=== PATIENT | male | born 1995 | race Caucasian/White ===

== ENCOUNTER 2022-01-12 07:51 | Emergency (ER) | payer OTHER ==
[~2022-01-12] VITALS: Ht 167.6 cm; Wt 55.8 kg
[2022-01-12 08:01] VITALS: BP 115/70
--- NOTE | 2022-01-12 08:08 | NUR ---
PT AMBULATED TO BED, STEADY GAIT
--- NOTE | 2022-01-12 08:18 | NUR ---
26 y/o male bib self c/o body weakness x this am. Pt states fainting this am after waking up, and feeling his ears pulsating. Pt reports LOC very briefly. Pt states loss of appetite, nausea, neck and back pain. Pt denies any injury/trauma to his head and any other part of body. Pt reports x 1 episode of fainting many years ago. Pt is A&O x 4, with even and steady gait. PEMHX: denies NKDA
--- NOTE | 2022-01-12 08:48 | NUR ---
holly swab collected and sent to lab
[2022-01-12] MEDS ORDERED: ACET-10509 PO (09:33)
[2022-01-12] MEDS ORDERED: IBUP-1842 PO (09:33)
[2022-01-12 09:50] VITALS: BP 130/86
--- NOTE | 2022-01-12 09:57 | NUR ---
Patient discharged with v/s stable. Written and verbal after care instructions given and explained about covid-19, syncope. Patient alert, oriented and verbalized understanding of instructions. Ambulatory with steady gait. All questions addressed prior to discharge. ID band removed. Patient advised to follow up with PMD. Rx of motrin, and tylenol given. Patient educated on indication of medication including possible reaction and side effects. Opportunity to ask questions provided and answered.
== END 2022-01-12 09:50 | disposition home or self-care (01) ==
LOC: MED 07:51
DX: U07.1 COVID-19 (principal); R55 Syncope and collapse; M79.10 Myalgia, unspecified site; R63.0 Anorexia; Z79.899 Other long term (current) drug therapy
CPT/HCPCS: 93005; 99284

== ENCOUNTER 2022-02-03 08:43 | Emergency (ER) | payer OTHER ==
[~2022-02-03] VITALS: Ht 171.7 cm; Wt 54.7 kg
[~2022-02-03 08:43] MED LIST: ACET-10509 PO; IBUP-1842 PO
[2022-02-03 08:47] VITALS: BP 115/64
--- NOTE | 2022-02-03 08:51 | NUR ---
PATIENT AMBULATED TO BED2.
[2022-02-03] MEDS ORDERED: PRED20TA5 PO (09:02)
[2022-02-03] MEDS ORDERED: IBUP-2809 PO (09:02)
--- NOTE | 2022-02-03 09:05 | NUR ---
PATIENT PRESENTS TO ED WITH SORE THROAT/COUGH AND EAR PAIN. PT STATES INCREASED PAIN WITH SWALLOWING PT TOOK TYLENOL WITH NO RELIEF. DENIES N/V/D; SKIN IS PINK/WARM/DRY; AAOX4 WITH EVEN AND STEADY GAIT; LUNGS CLEAR BL; HR EVEN AND REGULAR; PT DENIES ANY FEVER, CP, SOB AT THIS TIME; PATIENT STATES PAIN OF 8/10 AT THIS TIME; VSS; PATIENT POSITIONED FOR COMFORT; HOB ELEVATED; BEDRAILS UP X2; BED DOWN. ER MD MADE AWARE OF PT STATUS. PMH: DENIES MEDS: TYLENOL W NO RELIEF NKA
[2022-02-03 09:11] VITALS: BP 115/64
--- NOTE | 2022-02-03 09:11 | NUR ---
Patient discharged with v/s stable. Written and verbal after care instructions given and explained. Patient alert, oriented and verbalized understanding of instructions. Ambulatory with steady gait. All questions addressed prior to discharge. ID band removed. Patient advised to follow up with PMD. Rx of IBUPROFEN, PREDNISONE given. Patient educated on indication of medication including possible reaction and side effects. Opportunity to ask questions provided and answered.
== END 2022-02-03 09:11 | disposition home or self-care (01) ==
LOC: MED 08:43
DX: J02.9 Acute pharyngitis, unspecified (principal)
CPT/HCPCS: 99283